=== PATIENT | female | born 1990 | race Hispanic/Latino ===

== ENCOUNTER 2019-01-03 12:26 | Emergency (ER) | payer OTHER ==
[2019-01-03] MEDS ORDERED: Ketorolac Tromethamine 60 MG/2 ML VIAL ONE (12:59)
[2019-01-03] MEDS ORDERED: Ondansetron ODT 4 MG TAB ONE (12:59)
[2019-01-03] MEDS ORDERED: Ketorolac Tromethamine 30 MG/ML VIAL ONE (13:02)
[2019-01-03 13:21] LABS: #Lymphocytes 1.6 thou/uL (1.20-3.40); #Monocytes 0.4 thou/uL (0.11-0.59); #Neutrophils 3.4 thou/uL (1.40-6.50); %Basophils 0.5 % (0.0-1.0); %Eosinophils 0.3 % (0.0-10.0); %Lymphocytes 29.1 % (21.0-51.0); %Monocytes 6.8 % (0.0-10.0); %Neutrophils 63.2 % (42.0-75.0); Hemoglobin 13.5 g/dL (12.0-16.0); Mean Corpuscular HGB CONC 31.9 g/dL (32.0-36.0); Mean Corpuscular Hemoglobin 26.4 pg (27.0-31.0); Mean Corpuscular Volume 82.9 fL (78.0-98.0); Mean Platelet Volume 6.9 fL (7.4-10.4); Platelet Count 302 thou/uL (130-400); Red Blood Cell (RBC) Count 5.13 mill/uL (4.20-5.40); White Blood Cell (WBC) Count 5.4 thou/uL (4.8-10.8)
[2019-01-03 13:32] LABS: Bilirubin Negative (Negative); Blood, Urine Small (Negative); Glucose, Urine (Dipstick) Negative (Negative); Leukocyte Negative (Negative); Nitrite Negative (Negative); Protein, Urine (Dipstick) 30 mg/dL (Neg-Trace)
[2019-01-03 13:36] LABS: Clarity Clear (Clear)
[2019-01-03 13:37] LABS: Pregnancy Test - Urine (BHCG) Negative (Negative); Pregu Control Background? CLEAR/WHITE (CLR/WHITE); Pregu Control Bar Appear? YES (CONTROL BAR); Specific Gravity 1.015 (1.002-1.036)
[2019-01-03 13:53] LABS: ALT (SGPT) 27 U/L (8-55); AST (SGOT) 18 U/L (5-34); Alkaline Phosphatase 86 U/L (40-150); Anion Gap 16 mmol/L (10-20); BUN (Urea Nitrogen) 15 mg/dL (7.0-18.7); Bilirubin, Total 0.5 mg/dL (0.2-1.2); Calc. Creatinine Clearance 0 mL/min (70-130); Carbon Dioxide 24 mmol/L (22-29); Chloride 105 mmol/L (98-107); Estimated GFR-MDRD 80; Globulin 2.8 g/dL (2.4-3.5); Glucose 88 mg/dL (70-105); Potassium 3.6 mmol/L (3.5-5.1); Protein, Total 7.8 g/dL (6.0-8.3); Sodium 141 mmol/L (136-145)
[2019-01-03 13:54] LABS: Squamous Epithelial 0-3 HPF (0-3); WBC/HPF 0-3 HPF (0-3)
[2019-01-03 13:55] LABS: Bacteria/HPF None Seen HPF (None Seen)
--- NOTE | 2019-01-03 14:58 | CT ---
CT OF THE ABDOMEN AND PELVIS WITHOUT CONTRAST: 01/03/19 COMPARISON: None. HISTORY: Flank pain. Left c.v.a. tenderness. TECHNIQUE: Multiple contiguous axial images were obtained in a CT of the abdomen and pelvis without contrast. Co stephany reformats were performed. FINDINGS: There is a 3 mm calcification of the left ureterovesical junction with mild left sided hydronephrosis . There are also two punctate nonobstructing calcifications in the lower pole of the left kidney. No right sided hydronephrosis or calculi are seen. The liver, gallbladder, adrenal glands, spleen, and p ancreas are unremarkable, although evaluation is limited without IV contrast. A 6.7 cm cystic structure in the right adnexa likely represents an ovarian cyst/follicle. The large a nd small bowel are unremarkable. The appendix is normal. No abdominal or pelvic lymphadenopathy are seen. The osseous structures, visualized inferior thorax, and abdominal wall soft tissues are unremarkable. IMPRESSION: 1. Left distal ureteral calcification with mild left hydronephrosis. 2. Nonobstructing left renal calculi. 3. Cystic structure in the right aspect of the pelvis likely represents an ovarian cyst/follicle . Recommend repeating a pelvic ultrasound in six weeks to ensure resolution. POS: [facility]
== END 2019-01-03 15:05 | disposition home or self-care (01) ==
LOC: ERS 12:26
DX: N13.2 Hydronephrosis with renal and ureteral calculous obstruction (principal)
CPT/HCPCS: 74176; 80053; 81003; 81015; 81025; 85025; 96374; J1885; Q0162